=== PATIENT | female | born 1965 | race Caucasian/White ===

== ENCOUNTER 2016-07-31 16:09 | Emergency (ER) | payer OTHER ==
[~2016-07-31] VITALS: Ht 177.8 cm; Wt 59.0 kg
--- NOTE | 2016-07-31 16:23 | ED GENERAL ADULT ---
History of Present Illness General Chief Complaint: General Adult Stated Complaint: PT SIB FOR BROKEN WRIST Source: patient Exam Limitations: no limitations Vital Signs & Intake/Output Vital Signs & Intake/Output Vital Signs Date Time Temp Pulse Resp B/P B/P Pulse O2 O2 Flow FiO2 Mean Ox Delivery Rate 07/31 1627 98.0 95 12 125/80 07/31 1621 98.0 99 12 125/80 99 Room Air Allergies Coded Allergies: No Known Allergies (07/31/16) Reconcile Medications Multivitamin (Multi-Day Vitamins) 1 EACH TABLET 1 TAB PO DAILY SUPPLEMENT ( Reported) Triage Note: TRIAGE: FELL TWO MONTHS AGO WITH BROKEN WRIST AND HAD SURGERY. HAD A HEAD CT WHICH SHOWED A BRAIN LESION. HAD RLE DVT WITH IVC FILTER PLACEMENT. WAS TOLD TO COME TO ED TO SEE DR BREWER FOR MEDICAL CLEARANCE TO GO TO [facility] FOR ETOH TREATMENT. REPORTS SHE DRINKS 4-8 GLASSES OF WINE PER DAY, LAST DRINK 3 DAYS AGO. DENIES HX SEIZURES OR DT'S. DENIES SI/HI OR VH/AH. CIWA [address] BREWER AWARE THAT PT IS HERE ON HER ARRIVAL. LABS ORDERED AND DRAWN. Triage Nurses Notes Reviewed? yes Onset: Abrupt Duration: week(s): Timing: recent history HPI: 07/31/16 4:30 51-year-old female presents to the emergency department from [facility] for medical clearance. The patient apparently has a history of a brain lesion. She also has an inferior vena caval filter and has a history of DVT. She is not currently on anticoagulation. The patient is presenting to [facility] for alcohol dependency. She denies any complaints at this time. She says she was hospitalized at [facility] for 6 days and she had a left hand fracture, developed a DVT, and according to her brain lesion was identified. The vena caval filter was placed. Past History Travel History Traveled to [place] past 21 day No Medical History Any Pertinent Medical History? see below for history Musculoskeletal: left hand fracture Surgical History Surgical History: vena caval filter Family History Hx Contributory? No Review of Systems Review of Systems Constitutional: Denies: fever. EENTM: Reports: no symptoms. Respiratory: Denies: short of breath. Cardiovascular: Denies: chest pain. GI: Denies: abdominal pain. Genitourinary: Reports: no symptoms. Musculoskeletal: Reports: no symptoms. Skin: Denies: rash. Neurological/Psychological: Reports: no symptoms. Hematologic/Endocrine: Reports: no symptoms. Immunologic/Allergic: Reports: no symptoms. Physical Exam Physical Exam General Appearance: well developed/nourished, alert, awake, anxious, mild distress Head: atraumatic, normal appearance Eyes: Bilateral: normal appearance, PERRL, EOMI. Ears, Nose, Throat: normal pharynx, normal ENT inspection Neck: normal inspection, supple Respiratory: normal breath sounds, chest non-tender, no respiratory distress Cardiovascular: regular rate/rhythm Peripheral Pulses: 4+ radial (R), 4+ radial (L) Gastrointestinal: soft, non-tender Back: normal range of motion Extremities: tenderness, tenderness to the dorsal left wrist, she has a scar on the volar aspect of the left wrist. Her left lower extremity is in a compression stocking. There is no significant edema. Neurologic/Psych: no motor/sensory deficits, awake, alert, oriented x 3 Skin: intact, normal color, warm/dry Core Measures ACS in differential dx? No CVA/TIA Diagnosis: No Severe Sepsis Present: No Septic Shock Present: No Progress Differential Diagnoses I considered the following diagnoses in my evaluation of the patient: [DVT, fracture, alcohol withdrawal, subdural hematoma,] Plan of Care: Orders Procedure Date/time Status CIWA 07/31 1622 Active URINE DRUG SCREEN FOR ER ONLY 07/31 1622 Complete PROTHROMBIN TIME 07/31 1622 Complete ETHANOL 07/31 162 Complete COMPREHENSIVE METABOLIC PANEL 07/31 162 Complete CBC WITHOUT DIFFERENTIAL 07/31 1622 Complete Laboratory Tests 07/31/16 1637: Urine Opiates Screen < 100.00, Methadone Screen < 40, Barbiturate Screen < 60, Ur Phencyclidine Scrn < 6.00, Amphetamines Screen < 100, U Benzodiazepines Scrn < 85, Urine Cocaine Screen < 50, Urine Cannabis Screen < 5.00 07/31/16 1627: Anion Gap 10, Estimated GFR > 60, BUN/Creatinine Ratio 16.3, Glucose 117 H, Calcium 9.6, Total Bilirubin 0.2, AST 70 H, ALT 42, Alkaline Phosphatase 78, Total Protein 6.3, Albumin 4.0, Globulin 2.3, Albumin/Globulin Ratio 1.7, PT 10.6, INR 1.01, CBC w Diff NO MAN DIFF REQ, RBC 3.70 L, MCV 102.4 H, MCH 34.3 H, RDW 16.5 H, MPV 7.7, Gran % 65.3, Lymphocytes % 25.5, Monocytes % 7.5, Eosinophils % 1.3, Basophils % 0.4, Absolute Granulocytes 4.5, Absolute Lymphocytes 1.7, Absolute Monocytes 0.5, Absolute Eosinophils 0.1, Absolute Basophils 0, PUBS MCHC 33.4, Serum Alcohol < 10.0 Initial ED EKG: none Departure Departure Disposition: HOME OR SELF CARE Condition: Stable Clinical Impression Primary Impression: Alcohol dependency Departure Forms: Customer Survey General Discharge Information Comments X-ray the left wrist IMPRESSION: Status post ORIF of a left distal radial fracture. Some evidence of healing including indistinctness of the fracture lines and surrounding callus formation. No radiographic evidence of hardware complication. Additional displaced ulnar styloid fracture and healing nondisplaced fracture across the fourth metacarpal mid shaft. DICTATED BY: RADHA MUNOZ MD DATE/TIME DICTATED:07/31/161725 CLIENT SERVICE MANAGER:CYNDIE DATE/TIME TRANSCRIBED:07/31/161725 CONFIDENTIAL, DO NOT COPY WITHOUT APPROPRIATE AUTHORIZATION. <Electronically signed in Other Vendor System> SIGNED BY: RADHA MUNOZ MD 07/31/[address] scan of the head was negative Critical Care Note Critical Care Note Critical Care Time: non-applicable
[2016-07-31 16:27] VITALS: BP 125/80
[2016-07-31 16:38] LABS: ABSOLUTE BASOPHIL COUNT 0 /CUMM (0.0-0.2); ABSOLUTE EOSINOPHIL COUNT 0.1 /CUMM (0.0-0.7); ABSOLUTE GRANULOCYTE CT 4.5 /CUMM (1.4-6.5); ABSOLUTE LYMPH COUNT 1.7 /CUMM (1.2-3.4); ABSOLUTE MONOCYTE COUNT 0.5 /CUMM (0.10-0.60); BASOPHIL % 0.4 % (0.0-2.0); EOSINOPHIL % 1.3 % (0-5); GRANULOCYTE % 65.3 % (42.2-75.2); HEMATOCRIT 37.9 % (37-47); MEAN CORPUSCULAR HGB 34.3 PG (27.0-31.0); MEAN CORPUSCULAR HGB CONC 33.4 G/DL (33.0-37.0); MEAN CORPUSCULAR VOLUME 102.4 FL (81.0-99.0); MEAN PLATELET VOLUME 7.7 FL (7.4-10.4); PLATELET COUNT 232 /CUMM (130-400); RBC DISTRIBUTION WIDTH 16.5 % (11.5-14.5); WHITE BLOOD CELL COUNT 6.8 /CUMM (4.8-10.8)
[2016-07-31 16:44] LABS: PT 10.6 SEC (9.4-12.5)
--- NOTE | 2016-07-31 17:12 | CT SCAN REPORT ---
EXAMINATION: CT HEAD WITHOUT CONTRAST CLINICAL INFORMATION: Headache. COMPARISON: None TECHNIQUE: Contiguous axial imaging was performed from the skull base to vertex without intravenous administration of contrast. DLP: 617 mGy-cm FINDINGS: There is no evidence of acute intracranial hemorrhage or territorial infarction. No abnormal mass effect or midline shift is seen. Elder to white matter differentiation is well preserved. No extra-axial fluid collections are identified. The ventricles are normal in size. There is no abnormal attenuation within the brain parenchyma. The osseous structures and soft tissues are normal. The mastoid air cells and visualized portions of the paranasal sinuses are well aerated. IMPRESSION: No acute intracranial process seen.
--- NOTE | 2016-07-31 17:33 | RADIOLOGY REPORT ---
EXAMINATION: XR WRIST, LEFT CLINICAL INFORMATION: Left wrist fracture COMPARISON: None TECHNIQUE: Four views of the left wrist. FINDINGS: There is a comminuted fracture of the distal left radius across which there has been placement of a volar plate anchored by several screws, one of which traverses the radiocarpal joint. There is some callus formation along the distal radius, and the fracture lines are fairly indistinct. There is also a displaced ulnar styloid fracture. There is an oblique lucency across the shaft of the fourth metacarpal which is fairly subtle, with some callus formation, which is suspected to reflect a healing nondisplaced fracture. The bones appear demineralized particularly in the periarticular regions, suggesting some disuse osteopenia. Alignment appears anatomic. IMPRESSION: Status post ORIF of a left distal radial fracture. Some evidence of healing including indistinctness of the fracture lines and surrounding callus formation. No radiographic evidence of hardware complication. Additional displaced ulnar styloid fracture and healing nondisplaced fracture across the fourth metacarpal mid shaft.
[2016-07-31] MEDS ORDERED: MULTI-DAY VITA1 EACH PO (19:06)
== END 2016-07-31 19:23 ==
LOC: ERH 16:09
PROVIDERS: Emergency Medicine
DX: F10.20 Alcohol dependence, uncomplicated (principal); S52.502A Unspecified fracture of the lower end of left radius, initial encounter for closed fracture; G93.9 Disorder of brain, unspecified; X58.XXXA Exposure to other specified factors, initial encounter; Y92.9 Unspecified place or not applicable; Y93.9 Activity, unspecified
CPT/HCPCS: 73110-LT; 80307; G0480